=== PATIENT | female | born 1945 | race Caucasian/White ===

== ENCOUNTER 2022-03-24 14:54 | Outpatient (REF) | payer MEDICARE, SELFPAY ==
[2022-03-26 10:51] LABS: COVID-19 RT-PCR UVMMC Result Negative (Negative)
== END 2022-03-24 14:55 | disposition home or self-care (01) ==
LOC: LBN 14:54
PROVIDERS: PCP Internal Medicine; Visit Provider Physician Assistant Medical
DX: J02.9 Acute pharyngitis, unspecified (principal); Z20.822 Contact with and (suspected) exposure to COVID-19
CPT/HCPCS: U0003; 87070

== ENCOUNTER 2023-02-14 21:45 | Outpatient (REF) | payer MEDICARE, SELFPAY ==
[2023-02-14 21:35] LABS: Anion Gap 7.4 mmol/L (3-11); BUN 22 mg/dL (7-18); CO2 29.6 mmol/L (21.0-32.0); CREATININE 1.2 mg/dL (0.55-1.02); Calcium 9.4 mg/dL (8.5-10.1); Chloride 105 mmol/L (98-107); Estimated GFR 47.21 (mL/min/1.73m2); Glucose 102 mg/dL (74-106); Potassium 4.2 mmol/L (3.5-5.1); Sodium 142 mmol/L (136-145)
== END 2023-02-14 21:46 | disposition home or self-care (01) ==
LOC: NCHCN 21:45
PROVIDERS: PCP Internal Medicine; Visit Provider Internal Medicine
DX: I10 Essential (primary) hypertension (principal); I25.10 Atherosclerotic heart disease of native coronary artery without angina pectoris; N18.9 Chronic kidney disease, unspecified; M10.9 Gout, unspecified
CPT/HCPCS: 80048

== ENCOUNTER 2023-04-24 18:47 | Outpatient (REF) | payer MEDICARE, SELFPAY | END 2023-04-24 18:48 | disposition home or self-care (01) | LOC: NCHCN 18:47 | PROVIDERS: PCP Internal Medicine; Visit Provider Family Medicine | DX: R39.9 Unspecified symptoms and signs involving the genitourinary system (principal); B96.29 Other Escherichia coli [E. coli] as the cause of diseases classified elsewhere | CPT/HCPCS: 87077; 87086; 87186 ==

== ENCOUNTER 2025-02-27 12:44 | Outpatient (REF) | payer MEDICARE, SELFPAY ==
[2025-02-27 15:05] LABS: ESR 19 mm/hr (0-30)
[2025-02-27 15:10] LABS: C-Reactive Protein 0.74 mg/dL (<or=0.5)
== END 2025-02-27 12:45 | disposition home or self-care (01) ==
LOC: NCHCN 12:44
PROVIDERS: PCP Internal Medicine; Visit Provider Internal Medicine
DX: M54.2 Cervicalgia (principal); G89.29 Other chronic pain
CPT/HCPCS: 85652; 86140